=== PATIENT | female | born 1950 | race Caucasian/White ===

== ENCOUNTER 2018-05-25 11:30 | Observation (INO) | payer MEDICARE ==
[~2018-05-25] VITALS: Ht 157.5 cm; Wt 46.3 kg
[2018-05-25] MEDS ORDERED: SODIUM CHLORIDE 0.9% 1000ML 1,000 ML IV STA (11:40)
[2018-05-25 12:24] LABS: BASOPHILS % 0.3 % (0.0-1.0); EOSINOPHILS # (AUTO) 0.1 (0.0-0.4); EOSINOPHILS % 0.9 % (0.0-6.0); HEMATOCRIT 36.6 % (34.2-44.1); HEMOGLOBIN 12.7 g/dL (12.0-16.0); LYMPHOCYTES # (AUTO) 1.2 (1.0-3.2); LYMPHOCYTES % 12.7 % (18.0-39.1); MEAN CORPUSCULAR HEMOGLOBIN 32.8 pg (28-32); MEAN CORPUSCULAR HGB CONC 34.7 g/dL (31-35); MEAN CORPUSCULAR VOLUME 94.6 fL (81-99); MONOCYTES # (AUTO) 0.8 (0.2-0.8); MONOCYTES % 8.9 % (4.4-11.3); NEUTROPHILS # (AUTO) 6.9 (2.1-6.9); NEUTROPHILS % 76.3 % (38.7-80.0); PLATELET COUNT 343 x10e3/uL (140-360); RED BLOOD COUNT 3.87 x10e6/uL (3.6-5.1)
[2018-05-25 12:34] LABS: ALANINE AMINOTRANSFERASE 35 IU/L (0-55); ALBUMIN 3.9 g/dL (3.5-5.0); ALBUMIN/GLOBULIN RATIO 0.8 (0.8-2.0); ALKALINE PHOSPHATASE 228 IU/L (40-150); ANION GAP 19.8 mmol/L (8-16); BLOOD UREA NITROGEN 25 mg/dL (7-26); BUN/CREATININE RATIO 15 (6-25); CALCIUM 11.1 mg/dL (8.4-10.2); CARBON DIOXIDE 23 mmol/L (22-29); CHLORIDE 83 mmol/L (98-107); CREATINE KINASE 32 IU/L (29-168); CREATININE, SERUM 1.65 mg/dL (0.57-1.11); EST GLOMERULAR FILTRATION RATE 31 ML/MIN (60-); GLUCOSE 82 mg/dL (74-118); POTASSIUM 4.8 mmol/L (3.5-5.1); SODIUM 121 mmol/L (136-145)
--- NOTE | 2018-05-25 12:53 | Diagnostic Imaging Report ---
EXAMINATION: CHEST SINGLE (PORTABLE) INDICATION: Cough COMPARISON: None FINDINGS: TUBES and LINES: None. LUNGS: Lungs are well inflated and clear. There is no evidence of pneumonia or pulmonary edema. PLEURA: No pleural effusion or pneumothorax. HEART AND MEDIASTINUM: The cardiomediastinal silhouette is unremarkable. BONES AND SOFT TISSUES: No acute osseous lesion. Soft tissues are unremarkable. UPPER ABDOMEN: No free air under the diaphragm. IMPRESSION: No acute thoracic abnormality. Signed by: Dr. Papo Fernandes MD on 05/25/2018 12:50 PM
[2018-05-25 13:11] LABS: BILIRUBIN,URINE NEGATIVE (NEGATIVE); CLARITY,URINE CLEAR (CLEAR); COLOR,URINE YELLOW (YELLOW); KETONES,URINE NEGATIVE (NEGATIVE); LEUKOCYTE ESTERASE ,URINE NEGATIVE (NEGATIVE); NITRITE,URINE NEGATIVE (NEGATIVE); PROTEIN,URINE DIPSTICK NEGATIVE (NEGATIVE); URINE UROBILINOGEN 0.2 mg/dL (0.2 - 1)
[2018-05-25 13:38] LABS: BACTERIA,URINE FEW /HPF; EPITHELIAL CELLS,URINE MODERATE /LPF; WBC,URINE (MAN) 0-5 /HPF (0-5); YEAST,URINE FEW
[2018-05-25] MEDS: SODIUM CHLORIDE 0.9% 1000ML 1,000 ML IV SCH (13:58)
[2018-05-25 14:38] VITALS: BP_SYST 118; BP_SYST 125; BP_DIAS 69; BP_DIAS 76
[2018-05-25] MEDS ORDERED: METFORMIN HCL500 MG PO (15:09)
[2018-05-25] MEDS ORDERED: AMILORIDE HCL5 MG (15:09)
[2018-05-25] MEDS ORDERED: LORATADINE10 MG PO (15:09)
[2018-05-25] MEDS ORDERED: FLUOXETINE HCL20 MG PO (15:09)
[2018-05-25] MEDS ORDERED: PIOGLITAZONE HC45 MG PO (15:09)
[2018-05-25] MEDS ORDERED: QUETIAPINE FUM100 MG PO (15:09)
[2018-05-25] MEDS ORDERED: DESMOPRESSIN (15:09)
[2018-05-25] MEDS ORDERED: VITAMIN D32000 UNI1 (15:09)
[2018-05-25] MEDS ORDERED: CARVEDILOL3.125 MG PO (15:09)
[2018-05-25] MEDS ORDERED: LEVOTHYROXINE75 MCG PO (15:09)
[2018-05-25 15:23] VITALS: BP 125/69
[2018-05-25] MEDS ORDERED: FLUCONAZOLE 200 MG/100 ML 100 ML IV SCH (17:45)
[2018-05-25] MEDS ORDERED: FLUCONAZOLE 200 MG/100 ML 100 ML IV ONE (18:00)
[2018-05-25] MEDS: SODIUM CHLORIDE 1 GM TAB PO SCH (19:51)
[2018-05-25 20:00] VITALS: BP 125/69
--- NOTE | 2018-05-25 20:42 | Diagnostic Imaging Report ---
History:Syncope Comparison studies:None Technique: Axial images were obtained from the skull base to the vertex. Coronal and sagittal images reconstructed from the axial data. Intravenous contrast: None Dose modulation, iterative reconstruction, and/or weight based adjustment of the mA/kV was utilized to reduce the radiation dose to as low as reasonably achievable. Findings: Scalp/skull: No abnormalities. Extra-axial spaces: No masses. No fluid collections. Brain sulci: Mildly prominent. Ventricles: Mild compensatory dilatation. No hydrocephalus. Parenchyma: Scattered hazy confluent hypodensities in the supratentorial white matter are small vessel ischemic changes. Chronic lacunar infarct. Left coronary abdomen No masses, hemorrhage, acute or chronic cortical vascular insults. Sellar/suprasellar region: No abnormalities. Craniocervical junction: Patent foramen magnum. No Chiari one malformation. Incidental findings: Atherosclerotic calcifications in the carotid siphons . Impression: No acute abnormalities. Chronic findings: 1. Mild generalized volume loss. 2. Mild supratentorial white matter small vessel ischemic changes. Signed by: DR Marlon Keene M.D. on 05/25/2018 8:39 PM
[2018-05-26] VITALS: BP 104/62
[2018-05-26] MEDS: SODIUM CHLORIDE 0.9% 1000ML 1,000 ML IV SCH (00:10)
[2018-05-26 04:00] VITALS: BP 102/58
[2018-05-26 05:08] LABS: BASOPHILS % 0.5 % (0.0-1.0); EOSINOPHILS # (AUTO) 0.1 (0.0-0.4); HEMATOCRIT 32.2 % (34.2-44.1); HEMOGLOBIN 11.1 g/dL (12.0-16.0); LYMPHOCYTES # (AUTO) 1.1 (1.0-3.2); LYMPHOCYTES % 18.1 % (18.0-39.1); MEAN CORPUSCULAR HEMOGLOBIN 32.8 pg (28-32); MEAN CORPUSCULAR HGB CONC 34.5 g/dL (31-35); MEAN CORPUSCULAR VOLUME 95.3 fL (81-99); MONOCYTES # (AUTO) 0.5 (0.2-0.8); MONOCYTES % 8.6 % (4.4-11.3); NEUTROPHILS # (AUTO) 4.3 (2.1-6.9); NEUTROPHILS % 71.3 % (38.7-80.0); PLATELET COUNT 299 x10e3/uL (140-360); RED BLOOD COUNT 3.38 x10e6/uL (3.6-5.1)
[2018-05-26 05:21] VITALS: BP 102/58
[2018-05-26 05:28] LABS: ALBUMIN 3.2 g/dL (3.5-5.0); ANION GAP 14.6 mmol/L (8-16); BILIRUBIN,DIRECT 0.1 mg/dL (0.0-0.5); CALCIUM 9.6 mg/dL (8.4-10.2); CREATININE, SERUM 1.28 mg/dL (0.57-1.11); MAGNESIUM 1.6 MG/DL (1.3-2.1); POTASSIUM 3.6 mmol/L (3.5-5.1)
[2018-05-26 05:56] LABS: FREE T4 (FREE THYROXINE) 0.71 ng/dL (0.9-1.8); THYROID STIMULATING HORMONE 0.165 uIU/mL (0.350-4.940)
[2018-05-26] MEDS ORDERED: LEVOTHYROXINE SODIUM 75 MCG TAB PO SCH ×2 (06:00→09:00)
[2018-05-26 07:34] VITALS: BP 98/60
[2018-05-26] MEDS: SODIUM CHLORIDE 1 GM TAB PO SCH (08:02)
[2018-05-26] MEDS ORDERED: LORATADINE 10 MG TAB PO SCH (09:00)
[2018-05-26] MEDS ORDERED: PIOGLITAZONE HCL 45 MG TAB PO SCH (09:00)
[2018-05-26] MEDS ORDERED: CARVEDILOL 3.125 MG TAB PO SCH (09:00)
[2018-05-26] MEDS ORDERED: FLUCONAZOLE 100 MG TAB PO SCH (09:00)
[2018-05-26] MEDS ORDERED: QUETIAPINE FUMARATE 100 MG TAB PO SCH (09:00)
[2018-05-26] MEDS ORDERED: PIOGLITAZONE HCL 15 MG TAB PO SCH (09:00)
[2018-05-26] MEDS ORDERED: FLUOXETINE HCL 20 MG CAP PO SCH (09:00)
[2018-05-26] MEDS ORDERED: DEXTROSE 50% SYRINGE 50 ML IV PRN (10:00)
[2018-05-26] MEDS ORDERED: FLUCONAZOLE100 MG PO (10:01)
[2018-05-26] MEDS ORDERED: LEVOTHYROXINE50 MCG PO (10:01)
[2018-05-26] MEDS ORDERED: INSULIN LISPRO 100 UNIT/1 ML 3ML VIAL SQ SCH (11:30)
[2018-05-26 11:32] VITALS: BP 113/64
--- NOTE | 2018-05-26 18:30 | Discharge Summary ---
ADMISSION DIAGNOSES 1. Hyponatremia. 2. Type 2 diabetes. 3. Bipolar. 4. Hypothyroidism. 5. Chronic kidney disease versus acute kidney injury. 6. Candiduria. 7. Diabetes insipidus. 8. Hypertension. DISCHARGE DIAGNOSES 1. Hyponatremia. 2. Type 2 diabetes. 3. Bipolar. 4. Hypothyroidism. 5. Chronic kidney disease versus acute kidney injury. 6. Candiduria. 7. Diabetes insipidus. 8. Hypertension. 9. sinus tachycardia. HISTORY: Patient has a history of type 2 diabetes, hypertension, hypothyroidism, bipolar depression, diabetes insipidus, tumor of the pituitary gland, surgical history of abdominal surgery, cholecystectomy, hysterectomy, x1, pituitary tumor removal. FAMILY HISTORY: Of diabetes in mother, uncle, grandmother and brother. SOCIAL HISTORY: Of 1 [id number] smoker, no alcohol or illicit drugs. HOSPITAL COURSE: A 68-year-old female admitted from Dr. Bird "Jose" Hanna's office due to hypotension. According to the patient, the blood pressure was so low that they could not get a value. On admission to the ER, blood pressure was 116/84. Patient admits to syncope last and positional vertigo. Patient denies recent change in diet or meds. She says that she has been lethargic and weak since early last week. On admission patient had a CT carotid Doppler which was negative. Sodium on admission was with boluses given in the ER as well as 2-g-sodium tabs. Patient's DDAVP and diuretics were held. Creatinine on admission was 1.65, GFR of 31. The next day, creatinine was 1.28, GFR of 42. Sodium came up to 134. Patient found to have yeast in her urine and was started on fluconazole. TSH was 0.165, free T4 of 0.71. Patient was discharged home and advised to follow up with her primary care as soon as possible due to the possibility of hypernatremia without DDAVP and diuretics. Patient was given a copy of her labs and said she will follow up as discussed. She will resume home medicines minus the amiloride, DDAVP, and she will start fluconazole for 5 days. Patient and understand discharge instructions and agree to plan. Vital signs stable, patient afebrile. Dictated by: Frances Brown, [employer] FREEDOM TAVAREZ MD Job#: [id number]
[2018-05-27] MEDS ORDERED: LEVOTHYROXINE SODIUM 50 MCG TAB PO SCH (06:00)
[2018-05-27] MEDS ORDERED: LEVOTHYROXINE SODIUM 75 MCG TAB PO SCH (06:00)
== END 2018-05-26 14:19 | disposition home or self-care (01) ==
LOC: ER 11:30 → ERHOLD 13:19 → IMCU 14:17
PROVIDERS: ADMIT Internal Medicine; ATTEND Internal Medicine
DX: I95.1 Orthostatic hypotension (principal); E87.1 Hypo-osmolality and hyponatremia; E11.22 Type 2 diabetes mellitus with diabetic chronic kidney disease; N18.9 Chronic kidney disease, unspecified; F31.9 Bipolar disorder, unspecified; E03.9 Hypothyroidism, unspecified; B37.49 Other urogenital candidiasis; Z83.3 Family history of diabetes mellitus; N17.9 Acute kidney failure, unspecified; I10 Essential (primary) hypertension; R00.0 Tachycardia, unspecified; F17.210 Nicotine dependence, cigarettes, uncomplicated
CPT/HCPCS: 36415 ×2; 70450; 71045; 80048; 80053; 80076; 81001; 82306; 82550; 82553; 82947; 82948 ×2; 83735; 83970; 84295; 84300; 84439; 84443; 84484; 84520; 85025 ×2; 87086; 93005; 93880; 97116; 97161; 99284; G0378 ×2; G8978; G8979; J1450; J7030 ×2

== ENCOUNTER 2020-05-23 10:45 | Inpatient (IN) | payer MEDICARE ==
[2020-05-23] VITALS (9 sets, daily range): BP systolic 106–126; BP diastolic 65–80
[~2020-05-23] VITALS: Ht 157.5 cm; Wt 49.0 kg
[~2020-05-23 10:45] MED LIST: AMILORIDE HCL5 MG; CARVEDILOL3.125 MG PO; DESMOPRESSIN; FLUCONAZOLE100 MG PO; FLUOXETINE HCL20 MG PO; LEVOTHYROXINE50 MCG PO; LEVOTHYROXINE75 MCG PO; LORATADINE10 MG PO; METFORMIN HCL500 MG PO; PIOGLITAZONE HC45 MG PO; QUETIAPINE FUM100 MG PO; VITAMIN D32000 UNI1
[2020-05-23] MEDS ORDERED: PANTOPRAZOLE 40 MG 10ML VIAL IV STA (11:08)
[2020-05-23] MEDS ORDERED: SODIUM CHLORIDE 0.9% 1000ML 1,000 ML IV STA (11:08)
[2020-05-23] MEDS ORDERED: ONDANSETRON HCL INJ 2MG/ML 2ML 2 MG/ML VIAL IV STA (11:08)
[2020-05-23 11:16] LABS: BASOPHILS % 0.2 % (0.0-1.0); HEMATOCRIT 37.9 % (34.2-44.1); HEMOGLOBIN 11.9 g/dL (12.0-16.0); LYMPHOCYTES # (AUTO) 0.2 (1.0-3.2); LYMPHOCYTES % 1.2 % (18.0-39.1); MEAN CORPUSCULAR HEMOGLOBIN 27.4 pg (28-32); MEAN CORPUSCULAR HGB CONC 31.4 g/dL (31-35); MEAN CORPUSCULAR VOLUME 87.1 fL (81-99); MONOCYTES # (AUTO) 0.3 (0.2-0.8); MONOCYTES % 1.4 % (4.4-11.3); NEUTROPHILS # (AUTO) 19.5 (2.1-6.9); NEUTROPHILS % 96.1 % (38.7-80.0); PLATELET COUNT 357 x10e3/uL (140-360); RED BLOOD COUNT 4.35 x10e6/uL (3.6-5.1); RED CELL DISTRIBUTION WIDTH 17.5 % (11.7-14.4)
[2020-05-23] MEDS ORDERED: SODIUM CHLORIDE 0.9% 50ML 50 ML ONE (11:24)
[2020-05-23] MEDS ORDERED: DIATRIZOATE MEGL/DIATRIZOA SOD 30 ML BTL PO ONE (11:25)
[2020-05-23] MEDS ORDERED: IOPAMIDOL 370 MG/ML 200 ML INFUS..BTL INJ ONE (11:25)
[2020-05-23 11:29] LABS: INR 1.02; PROTHROMBIN TIME 13.9 seconds (11.9-14.5)
[2020-05-23 11:30] LABS: PARTIAL THROMBOPLASTIN TIME 30.4 seconds (23.8-35.5)
[2020-05-23] MEDS ORDERED: CARVEDILOL6.25 MG PO (11:32)
[2020-05-23] MEDS ORDERED: QUETIAPINE FUM400 MG PO (11:32)
[2020-05-23] MEDS ORDERED: LIOTHYRONINE SO5 MCG PO (11:32)
[2020-05-23] MEDS ORDERED: ULTRAM 50MG50 MG PO (11:32)
[2020-05-23] MEDS ORDERED: AMITRIPTYLINE H10 MG PO (11:32)
[2020-05-23] MEDS ORDERED: PANTOPRAZOLE SO40 MG PO (11:32)
[2020-05-23] MEDS ORDERED: AMILORIDE HCL5 MG (11:32)
[2020-05-23] MEDS ORDERED: FLUOXETINE HCL40 MG (11:32)
[2020-05-23] MEDS ORDERED: DESMOPRESSIN A0.2 MG PO (11:32)
[2020-05-23] MEDS ORDERED: LEVOTHYROXINE88 MCG PO (11:32)
[2020-05-23 11:36] LABS: ALBUMIN/GLOBULIN RATIO 1.2 (0.8-2.0); ANION GAP 16.7 mmol/L (8-16); CALCIUM 9.8 mg/dL (8.4-10.2); CREATININE, SERUM 1.48 mg/dL (0.57-1.11); MAGNESIUM 1.4 MG/DL (1.3-2.1); POTASSIUM 4.7 mmol/L (3.5-5.1)
[2020-05-23 11:39] LABS: BILIRUBIN,URINE NEGATIVE (NEGATIVE); CLARITY,URINE CLEAR (CLEAR); COLOR,URINE YELLOW (YELLOW); KETONES,URINE NEGATIVE (NEGATIVE); LEUKOCYTE ESTERASE ,URINE NEGATIVE (NEGATIVE); NITRITE,URINE NEGATIVE (NEGATIVE); PROTEIN,URINE DIPSTICK NEGATIVE (NEGATIVE)
[2020-05-23] MEDS ORDERED: PIPER-TAZ 3.375 GM 50 ML IV ONE (11:45)
[2020-05-23] MEDS ORDERED: SODIUM CHLORIDE 0.9% 500ML 500 ML IV ONE (11:45)
[2020-05-23 11:57] LABS: BACTERIA,URINE FEW /HPF; EPITHELIAL CELLS,URINE FEW /LPF; RBC,URINE 0-5 /HPF (0-5); WBC,URINE (MAN) 0-5 /HPF (0-5)
[2020-05-23 11:59] LABS: CREATINE KINASE MB 0.9 ng/mL (0-5.0)
[2020-05-23 12:05] LABS: ANISOCYTOSIS SLIGHT; BAND NEUTROPHILS % (MANUAL) 7 %; LYMPHOCYTES % (MANUAL) 3 % (19-48); MONOCYTES % (MANUAL) 1 % (3.4-9.0); NEUTROPHILS % (MANUAL) 88 % (40-74); PLATELET ESTIMATE ADEQUATE; POIKILOCYTOSIS SLIGHT; RBC MORPHOLOGY COMMENT NORMAL
[2020-05-23 12:06] LABS: PLATELET MORPHOLOGY COMMENT FEW GIANT
[2020-05-23] MEDS ORDERED: SODIUM CHLORIDE 0.9% 1000ML 1,000 ML IV SCH (14:30)
[2020-05-23] MEDS ORDERED: LIDOCAINE HCL 1% LOCAL INJ 20 ML VIAL ONE (14:35)
[2020-05-23] MEDS ORDERED: SODIUM CHLORIDE 0.9% 250ML 250 ML ONE (14:36)
[2020-05-23] MEDS ORDERED: IOPAMIDOL 300MG/ML 100 ML INFUS..BTL IV ONE (14:36)
[2020-05-23] MEDS ORDERED: MIDAZOLAM HCL 2 MG/2 ML VIAL ONE (14:47)
[2020-05-23] MEDS ORDERED: FENTANYL CITRATE/PF 100MCG/2 ML INJ ONE (14:47)
[2020-05-23] MEDS: MORPHINE SULFATE 2 MG/ML SYR 1ML IV PRN (16:50)
[2020-05-23] MEDS: ONDANSETRON HCL INJ 2MG/ML 2ML 2 MG/ML VIAL IV PRN (16:50)
[2020-05-23] MEDS: PIPERACILLIN/TAZO 2.25 GM 50 ML IV SCH (17:41)
[2020-05-23] MEDS ORDERED: PIPERACILLIN/TAZOBAC 2.25 GM/SOD CHL 50 ML BAG IV SCH (18:00)
[2020-05-23] MEDS ORDERED: INFLUENZA VIRUS VAC SPLIT INJ 0.5 ML SYR IM SCH (18:44)
[2020-05-23] MEDS ORDERED: METOPROLOL TARTRATE INJ 1 MG/ML VIAL IV PRN (21:00)
[2020-05-23] MEDS ORDERED: [UNRECOGNIZED DRUG - OTHER] OP/OT (23:25)
[2020-05-24] VITALS (17 sets, daily range): BP systolic 107–156; BP diastolic 63–94
[2020-05-24] MEDS: PIPERACILLIN/TAZO 2.25 GM 50 ML IV SCH ×4 (00:35→18:30)
[2020-05-24] MEDS: AMITRIPTYLINE HCL 10 MG TAB PO SCH ×2 (00:52→21:40)
[2020-05-24] MEDS: FLUOXETINE HCL 20 MG CAP PO SCH ×2 (00:52→21:40)
[2020-05-24] MEDS: QUETIAPINE FUMARATE 100 MG TAB PO SCH ×2 (00:52→21:40)
[2020-05-24] MEDS: MORPHINE SULFATE 2 MG/ML SYR 1ML IV PRN (05:00)
[2020-05-24 05:10] LABS: BASOPHILS % 0.2 % (0.0-1.0); EOSINOPHILS % 0.1 % (0.0-6.0); HEMATOCRIT 37.4 % (34.2-44.1); HEMOGLOBIN 11.5 g/dL (12.0-16.0); LYMPHOCYTES # (AUTO) 0.7 (1.0-3.2); LYMPHOCYTES % 5.4 % (18.0-39.1); MEAN CORPUSCULAR HEMOGLOBIN 27.6 pg (28-32); MEAN CORPUSCULAR HGB CONC 30.7 g/dL (31-35); MEAN CORPUSCULAR VOLUME 89.9 fL (81-99); MONOCYTES # (AUTO) 0.6 (0.2-0.8); MONOCYTES % 4.8 % (4.4-11.3); NEUTROPHILS # (AUTO) 10.9 (2.1-6.9); NEUTROPHILS % 88.4 % (38.7-80.0); PLATELET COUNT 244 x10e3/uL (140-360); RED BLOOD COUNT 4.16 x10e6/uL (3.6-5.1); RED CELL DISTRIBUTION WIDTH 18.1 % (11.7-14.4)
[2020-05-24 05:30] LABS: ALBUMIN 3.4 g/dL (3.5-5.0); ALBUMIN/GLOBULIN RATIO 1.1 (0.8-2.0); ANION GAP 13.7 mmol/L (8-16); CALCIUM 9.2 mg/dL (8.4-10.2); CREATININE, SERUM 1.27 mg/dL (0.57-1.11); POTASSIUM 5.7 mmol/L (3.5-5.1)
[2020-05-24 05:51] LABS: CREATINE KINASE MB 1.1 ng/mL (0-5.0)
[2020-05-24 06:05] LABS: CHOL/HDL RATIO 4.4 (3.0-3.6); MAGNESIUM 1.5 MG/DL (1.3-2.1); PHOSPHORUS 3.5 MG/DL (2.3-4.7)
[2020-05-24] MEDS: FAMOTIDINE 20 MG/2 ML VIAL IV SCH ×2 (08:54→17:00)
[2020-05-24 09:12] LABS: ALBUMIN 3.2 g/dL (3.5-5.0); ALBUMIN/GLOBULIN RATIO 1.1 (0.8-2.0); ANION GAP 13.6 mmol/L (8-16); CALCIUM 8.7 mg/dL (8.4-10.2); CREATININE, SERUM 1.19 mg/dL (0.57-1.11); POTASSIUM 4.6 mmol/L (3.5-5.1)
[2020-05-24] MEDS ORDERED: SODIUM CHLORIDE 0.9% 250ML 250 ML ONE (18:35)
[2020-05-24] MEDS ORDERED: LIOTHYRONINE SODIUM 5 MCG TAB PO SCH (21:00)
[2020-05-24] MEDS ORDERED: DESMOPRESSIN ACETATE 0.2 MG TABLET PO SCH ×2 (21:00)
[2020-05-24] MEDS: LIOTHYRONINE SODIUM 5 MCG TAB PO SCH (21:40)
[2020-05-25] VITALS (9 sets, daily range): BP systolic 123–151; BP diastolic 83–99
[2020-05-25] MEDS: MORPHINE SULFATE 2 MG/ML SYR 1ML IV PRN (05:25)
[2020-05-25 05:37] LABS: BASOPHILS % 0.3 % (0.0-1.0); EOSINOPHILS # (AUTO) 0.1 (0.0-0.4); EOSINOPHILS % 0.7 % (0.0-6.0); HEMATOCRIT 34.7 % (34.2-44.1); MEAN CORPUSCULAR HEMOGLOBIN 28.7 pg (28-32); MEAN CORPUSCULAR HGB CONC 31.7 g/dL (31-35); MEAN CORPUSCULAR VOLUME 90.6 fL (81-99); MONOCYTES # (AUTO) 0.7 (0.2-0.8); MONOCYTES % 7.6 % (4.4-11.3); NEUTROPHILS # (AUTO) 7.8 (2.1-6.9); NEUTROPHILS % 80.6 % (38.7-80.0); PLATELET COUNT 230 x10e3/uL (140-360); RED BLOOD COUNT 3.83 x10e6/uL (3.6-5.1); RED CELL DISTRIBUTION WIDTH 18.2 % (11.7-14.4)
[2020-05-25] MEDS: PIPERACILLIN/TAZO 2.25 GM 50 ML IV SCH ×5 (05:39→23:45)
[2020-05-25 06:08] LABS: ALBUMIN 2.6 g/dL (3.5-5.0); ALBUMIN/GLOBULIN RATIO 0.6 (0.8-2.0); ANION GAP 13.6 mmol/L (8-16); CALCIUM 9.1 mg/dL (8.4-10.2); CREATININE, SERUM 1.25 mg/dL (0.57-1.11); POTASSIUM 4.6 mmol/L (3.5-5.1)
[2020-05-25] MEDS: FAMOTIDINE 20 MG/2 ML VIAL IV SCH ×2 (13:03→17:15)
[2020-05-25] MEDS: QUETIAPINE FUMARATE 100 MG TAB PO SCH (21:24)
[2020-05-25] MEDS: DESMOPRESSIN ACETATE 0.2 MG TABLET PO SCH (21:24)
[2020-05-25] MEDS: AMITRIPTYLINE HCL 10 MG TAB PO SCH (21:24)
[2020-05-25] MEDS: LIOTHYRONINE SODIUM 5 MCG TAB PO SCH (21:24)
[2020-05-25] MEDS: FLUOXETINE HCL 20 MG CAP PO SCH (21:24)
[2020-05-26] VITALS (8 sets, daily range): BP systolic 124–158; BP diastolic 78–94
[2020-05-26] MEDS: PIPERACILLIN/TAZO 2.25 GM 50 ML IV SCH ×3 (05:21→17:30)
[2020-05-26 06:39] LABS: BASOPHILS % 0.3 % (0.0-1.0); EOSINOPHILS # (AUTO) 0.1 (0.0-0.4); EOSINOPHILS % 1.1 % (0.0-6.0); HEMATOCRIT 34.7 % (34.2-44.1); HEMOGLOBIN 11.2 g/dL (12.0-16.0); LYMPHOCYTES # (AUTO) 0.9 (1.0-3.2); MEAN CORPUSCULAR HEMOGLOBIN 28.9 pg (28-32); MEAN CORPUSCULAR HGB CONC 32.3 g/dL (31-35); MEAN CORPUSCULAR VOLUME 89.7 fL (81-99); MONOCYTES # (AUTO) 0.6 (0.2-0.8); MONOCYTES % 6.5 % (4.4-11.3); NEUTROPHILS # (AUTO) 7.6 (2.1-6.9); NEUTROPHILS % 81.1 % (38.7-80.0); PLATELET COUNT 240 x10e3/uL (140-360); RED BLOOD COUNT 3.87 x10e6/uL (3.6-5.1); RED CELL DISTRIBUTION WIDTH 17.9 % (11.7-14.4)
[2020-05-26 06:48] LABS: ANION GAP 14.1 mmol/L (8-16); CALCIUM 9.2 mg/dL (8.4-10.2); CREATININE, SERUM 1.29 mg/dL (0.57-1.11); POTASSIUM 4.1 mmol/L (3.5-5.1)
[2020-05-26] MEDS: PANTOPRAZOLE SOD 40 MG TABEC PO SCH (08:21)
[2020-05-26] MEDS: FAMOTIDINE 20 MG/2 ML VIAL IV SCH ×2 (08:21→16:30)
[2020-05-26] MEDS: ONDANSETRON HCL INJ 2MG/ML 2ML 2 MG/ML VIAL IV PRN (11:36)
[2020-05-26] MEDS: MORPHINE SULFATE 2 MG/ML SYR 1ML IV PRN (11:37)
[2020-05-26] MEDS: AMLODIPINE BESYLATE 10 MG TAB PO SCH (16:00)
[2020-05-26] MEDS: DESMOPRESSIN ACETATE 0.2 MG TABLET PO SCH (20:52)
[2020-05-26] MEDS: LIOTHYRONINE SODIUM 5 MCG TAB PO SCH (20:52)
[2020-05-26] MEDS: AMITRIPTYLINE HCL 10 MG TAB PO SCH (20:52)
[2020-05-26] MEDS: FLUOXETINE HCL 20 MG CAP PO SCH (20:52)
[2020-05-26] MEDS: QUETIAPINE FUMARATE 100 MG TAB PO SCH (20:52)
[2020-05-26] MEDS ORDERED: SODIUM CHLORIDE 0.9% 250ML 250 ML ONE (22:51)
[2020-05-27] VITALS (8 sets, daily range): BP systolic 127–168; BP diastolic 76–98
[2020-05-27] MEDS: PIPERACILLIN/TAZO 2.25 GM 50 ML IV SCH ×5 (05:52→23:51)
[2020-05-27 06:03] LABS: BASOPHILS % 0.3 % (0.0-1.0); EOSINOPHILS # (AUTO) 0.1 (0.0-0.4); EOSINOPHILS % 0.9 % (0.0-6.0); HEMATOCRIT 33.8 % (34.2-44.1); HEMOGLOBIN 10.6 g/dL (12.0-16.0); LYMPHOCYTES # (AUTO) 1.1 (1.0-3.2); MEAN CORPUSCULAR HEMOGLOBIN 27.1 pg (28-32); MEAN CORPUSCULAR HGB CONC 31.4 g/dL (31-35); MEAN CORPUSCULAR VOLUME 86.4 fL (81-99); MONOCYTES # (AUTO) 0.7 (0.2-0.8); MONOCYTES % 8.3 % (4.4-11.3); NEUTROPHILS % 75.2 % (38.7-80.0); PLATELET COUNT 272 x10e3/uL (140-360); RED BLOOD COUNT 3.91 x10e6/uL (3.6-5.1); RED CELL DISTRIBUTION WIDTH 17.2 % (11.7-14.4)
[2020-05-27 06:29] LABS: ALBUMIN 2.8 g/dL (3.5-5.0); ALBUMIN/GLOBULIN RATIO 0.7 (0.8-2.0); ANION GAP 12.1 mmol/L (8-16); CALCIUM 9.2 mg/dL (8.4-10.2); CREATININE, SERUM 1.3 mg/dL (0.57-1.11); POTASSIUM 4.1 mmol/L (3.5-5.1)
[2020-05-27] MEDS: PANTOPRAZOLE SOD 40 MG TABEC PO SCH (09:35)
[2020-05-27] MEDS: FAMOTIDINE 20 MG/2 ML VIAL IV SCH ×2 (09:35→18:19)
[2020-05-27] MEDS: AMLODIPINE BESYLATE 10 MG TAB PO SCH (09:36)
[2020-05-27] MEDS ORDERED: ACETAMINOPHEN 325 MG TAB PO PRN (20:45)
[2020-05-27] MEDS ORDERED: HYDRALAZINE HCL 20 MG/ML VIAL IV PRN (20:45)
[2020-05-27] MEDS: LIOTHYRONINE SODIUM 5 MCG TAB PO SCH (21:05)
[2020-05-27] MEDS: QUETIAPINE FUMARATE 100 MG TAB PO SCH (21:05)
[2020-05-27] MEDS: DESMOPRESSIN ACETATE 0.2 MG TABLET PO SCH (21:05)
[2020-05-27] MEDS: AMITRIPTYLINE HCL 10 MG TAB PO SCH (21:05)
[2020-05-27] MEDS: FLUOXETINE HCL 20 MG CAP PO SCH (21:05)
[2020-05-27] MEDS: MORPHINE SULFATE 2 MG/ML SYR 1ML IV PRN (22:09)
[2020-05-27] MEDS: ONDANSETRON HCL INJ 2MG/ML 2ML 2 MG/ML VIAL IV PRN (22:09)
[2020-05-28] VITALS (8 sets, daily range): BP systolic 106–124; BP diastolic 75–83
[2020-05-28] MEDS ORDERED: BISACODYL 10 MG SUPP PR ONE (06:00)
[2020-05-28] MEDS: PIPERACILLIN/TAZO 2.25 GM 50 ML IV SCH ×3 (06:07→16:57)
[2020-05-28 06:54] LABS: FERRITIN 79.14 ng/mL (4.63-204.00)
[2020-05-28] MEDS: PANTOPRAZOLE SOD 40 MG TABEC PO SCH (08:26)
[2020-05-28] MEDS: FAMOTIDINE 20 MG/2 ML VIAL IV SCH ×2 (08:26→16:57)
[2020-05-28] MEDS: AMLODIPINE BESYLATE 10 MG TAB PO SCH (08:26)
[2020-05-28] MEDS ORDERED: SODIUM CHLORIDE 0.9% 250ML 250 ML ONE (14:10)
[2020-05-28] MEDS ORDERED: LIDOCAINE HCL 1% LOCAL INJ 20 ML VIAL ONE (14:10)
[2020-05-28] MEDS ORDERED: IOPAMIDOL 300MG/ML 100 ML INFUS..BTL IV ONE (14:10)
[2020-05-28] MEDS ORDERED: FENTANYL CITRATE/PF 100MCG/2 ML INJ ONE (15:03)
[2020-05-28] MEDS ORDERED: MIDAZOLAM HCL 2 MG/2 ML VIAL ONE (15:03)
[2020-05-28] MEDS: FLUOXETINE HCL 20 MG CAP PO SCH (21:00)
[2020-05-28] MEDS: AMITRIPTYLINE HCL 10 MG TAB PO SCH (21:00)
[2020-05-28] MEDS: DESMOPRESSIN ACETATE 0.2 MG TABLET PO SCH (21:00)
[2020-05-28] MEDS: LIOTHYRONINE SODIUM 5 MCG TAB PO SCH (21:00)
[2020-05-28] MEDS: QUETIAPINE FUMARATE 100 MG TAB PO SCH (21:00)
[2020-05-28] MEDS: MORPHINE SULFATE 2 MG/ML SYR 1ML IV PRN (22:36)
[2020-05-28] MEDS: ONDANSETRON HCL INJ 2MG/ML 2ML 2 MG/ML VIAL IV PRN (22:36)
[2020-05-29] VITALS (8 sets, daily range): BP systolic 102–141; BP diastolic 70–90
[2020-05-29 05:09] LABS: BASOPHILS # (AUTO) 0.1 (0.0-0.1); BASOPHILS % 0.5 % (0.0-1.0); EOSINOPHILS # (AUTO) 0.1 (0.0-0.4); HEMATOCRIT 32.9 % (34.2-44.1); HEMOGLOBIN 10.9 g/dL (12.0-16.0); LYMPHOCYTES # (AUTO) 1.8 (1.0-3.2); LYMPHOCYTES % 19.1 % (18.0-39.1); MEAN CORPUSCULAR HEMOGLOBIN 29.5 pg (28-32); MEAN CORPUSCULAR HGB CONC 33.1 g/dL (31-35); MEAN CORPUSCULAR VOLUME 88.9 fL (81-99); MONOCYTES # (AUTO) 0.9 (0.2-0.8); MONOCYTES % 9.7 % (4.4-11.3); NEUTROPHILS # (AUTO) 6.2 (2.1-6.9); NEUTROPHILS % 67.8 % (38.7-80.0); PLATELET COUNT 258 x10e3/uL (140-360); RED CELL DISTRIBUTION WIDTH 19.1 % (11.7-14.4)
[2020-05-29] MEDS: PIPERACILLIN/TAZO 2.25 GM 50 ML IV SCH ×5 (05:27→23:08)
[2020-05-29 05:29] LABS: ALBUMIN 2.7 g/dL (3.5-5.0); ALBUMIN/GLOBULIN RATIO 0.6 (0.8-2.0); ANION GAP 13.8 mmol/L (8-16); BILIRUBIN,DIRECT 0.4 mg/dL (0.0-0.5); CALCIUM 9.3 mg/dL (8.4-10.2); CREATININE, SERUM 1.21 mg/dL (0.57-1.11); POTASSIUM 3.8 mmol/L (3.5-5.1)
[2020-05-29] MEDS: FAMOTIDINE 20 MG/2 ML VIAL IV SCH ×2 (09:04→18:26)
[2020-05-29] MEDS: CYANOCOBALAMIN INJ 1,000 MCG/ML VIAL IM SCH (09:04)
[2020-05-29] MEDS: IRON SUCROSE 100 MG in SODIUM CHLORIDE 0.9% 100 ML 100 ML IV SCH (09:04)
[2020-05-29] MEDS: PANTOPRAZOLE SOD 40 MG TABEC PO SCH (09:04)
[2020-05-29] MEDS: AMLODIPINE BESYLATE 10 MG TAB PO SCH (09:07)
[2020-05-29] MEDS: ONDANSETRON HCL INJ 2MG/ML 2ML 2 MG/ML VIAL IV PRN ×2 (11:46→22:54)
[2020-05-29] MEDS: MORPHINE SULFATE 2 MG/ML SYR 1ML IV PRN ×2 (11:46→22:54)
[2020-05-29] MEDS: LIOTHYRONINE SODIUM 5 MCG TAB PO SCH (20:02)
[2020-05-29] MEDS: DESMOPRESSIN ACETATE 0.2 MG TABLET PO SCH (20:02)
[2020-05-29] MEDS: AMITRIPTYLINE HCL 10 MG TAB PO SCH (20:02)
[2020-05-29] MEDS: FLUOXETINE HCL 20 MG CAP PO SCH (20:02)
[2020-05-29] MEDS: QUETIAPINE FUMARATE 100 MG TAB PO SCH (20:03)
[2020-05-30] VITALS (7 sets, daily range): BP systolic 110–130; BP diastolic 73–85
[2020-05-30] MEDS ORDERED: MAGNESIUM HYDROXIDE 30 ML UDC PO PRN
[2020-05-30] MEDS: PIPERACILLIN/TAZO 2.25 GM 50 ML IV SCH ×3 (05:02→16:56)
[2020-05-30 05:07] LABS: BASOPHILS # (AUTO) 0.1 (0.0-0.1); BASOPHILS % 0.6 % (0.0-1.0); EOSINOPHILS # (AUTO) 0.1 (0.0-0.4); EOSINOPHILS % 1.2 % (0.0-6.0); HEMATOCRIT 35.3 % (34.2-44.1); HEMOGLOBIN 11.1 g/dL (12.0-16.0); LYMPHOCYTES # (AUTO) 2.2 (1.0-3.2); LYMPHOCYTES % 22.7 % (18.0-39.1); MEAN CORPUSCULAR HEMOGLOBIN 28.1 pg (28-32); MEAN CORPUSCULAR HGB CONC 31.4 g/dL (31-35); MEAN CORPUSCULAR VOLUME 89.4 fL (81-99); MONOCYTES # (AUTO) 0.8 (0.2-0.8); NEUTROPHILS # (AUTO) 6.2 (2.1-6.9); PLATELET COUNT 339 x10e3/uL (140-360); RED BLOOD COUNT 3.95 x10e6/uL (3.6-5.1); RED CELL DISTRIBUTION WIDTH 17.6 % (11.7-14.4)
[2020-05-30 05:32] LABS: ALBUMIN 2.8 g/dL (3.5-5.0); ALBUMIN/GLOBULIN RATIO 0.6 (0.8-2.0); ANION GAP 17.2 mmol/L (8-16); BILIRUBIN,DIRECT 0.3 mg/dL (0.0-0.5); CALCIUM 9.4 mg/dL (8.4-10.2); CREATININE, SERUM 1.29 mg/dL (0.57-1.11); POTASSIUM 4.2 mmol/L (3.5-5.1)
[2020-05-30] MEDS: AMLODIPINE BESYLATE 10 MG TAB PO SCH (08:35)
[2020-05-30] MEDS: PANTOPRAZOLE SOD 40 MG TABEC PO SCH (08:35)
[2020-05-30] MEDS: FAMOTIDINE 20 MG/2 ML VIAL IV SCH ×2 (08:35→16:56)
[2020-05-30] MEDS: CYANOCOBALAMIN INJ 1,000 MCG/ML VIAL IM SCH (08:35)
[2020-05-30] MEDS: IRON SUCROSE 100 MG in SODIUM CHLORIDE 0.9% 100 ML 100 ML IV SCH (08:36)
[2020-05-30] MEDS: LIOTHYRONINE SODIUM 5 MCG TAB PO SCH (20:45)
[2020-05-30] MEDS: AMITRIPTYLINE HCL 10 MG TAB PO SCH (20:47)
[2020-05-30] MEDS: FLUOXETINE HCL 20 MG CAP PO SCH (20:47)
[2020-05-30] MEDS: QUETIAPINE FUMARATE 100 MG TAB PO SCH (20:48)
[2020-05-30] MEDS: DESMOPRESSIN ACETATE 0.2 MG TABLET PO SCH (20:53)
[2020-05-30] MEDS ORDERED: TRAMADOL HCL 50 MG TAB PO PRN (23:30)
[2020-05-31] VITALS: BP 108/71
[2020-05-31] MEDS: PIPERACILLIN/TAZO 2.25 GM 50 ML IV SCH ×3 (00:05→11:49)
[2020-05-31] MEDS ORDERED: SODIUM CHLORIDE 0.9% 250ML 250 ML ONE (00:11)
[2020-05-31 04:00] VITALS: BP 115/80
[2020-05-31 05:05] LABS: BASOPHILS % 0.5 % (0.0-1.0); EOSINOPHILS # (AUTO) 0.1 (0.0-0.4); HEMATOCRIT 30.8 % (34.2-44.1); HEMOGLOBIN 9.7 g/dL (12.0-16.0); LYMPHOCYTES # (AUTO) 1.7 (1.0-3.2); LYMPHOCYTES % 20.5 % (18.0-39.1); MEAN CORPUSCULAR HEMOGLOBIN 27.2 pg (28-32); MEAN CORPUSCULAR HGB CONC 31.5 g/dL (31-35); MEAN CORPUSCULAR VOLUME 86.3 fL (81-99); MONOCYTES # (AUTO) 0.6 (0.2-0.8); MONOCYTES % 6.9 % (4.4-11.3); NEUTROPHILS # (AUTO) 5.8 (2.1-6.9); NEUTROPHILS % 69.8 % (38.7-80.0); PLATELET COUNT 334 x10e3/uL (140-360); RED BLOOD COUNT 3.57 x10e6/uL (3.6-5.1); RED CELL DISTRIBUTION WIDTH 17.2 % (11.7-14.4)
[2020-05-31 05:34] LABS: ALBUMIN 2.6 g/dL (3.5-5.0); ALBUMIN/GLOBULIN RATIO 0.7 (0.8-2.0); ANION GAP 14.5 mmol/L (8-16); CREATININE, SERUM 1.05 mg/dL (0.57-1.11); POTASSIUM 3.5 mmol/L (3.5-5.1)
[2020-05-31 07:40] VITALS: BP 117/80
[2020-05-31 08:13] VITALS: BP 117/80
[2020-05-31] MEDS: PANTOPRAZOLE SOD 40 MG TABEC PO SCH (08:47)
[2020-05-31] MEDS: FAMOTIDINE 20 MG/2 ML VIAL IV SCH (09:10)
[2020-05-31] MEDS: IRON SUCROSE 100 MG in SODIUM CHLORIDE 0.9% 100 ML 100 ML IV SCH (09:10)
[2020-05-31] MEDS: CYANOCOBALAMIN INJ 1,000 MCG/ML VIAL IM SCH (09:10)
[2020-05-31] MEDS: AMLODIPINE BESYLATE 10 MG TAB PO SCH (09:11)
[2020-05-31] MEDS ORDERED: KEFLEX500 MG PO (09:15)
[2020-05-31] MEDS ORDERED: ULTRAM 50MG50 MG PO (09:15)
[2020-05-31] MEDS ORDERED: FAMOTIDINE 20 MG TAB PO SCH ×2 (09:30→21:00)
[2020-05-31] MEDS ORDERED: ONDANSETRON HCL 4 MG ORAL DISINTEGRATING TAB PO PRN (09:45)
[2020-05-31 11:24] VITALS: BP 115/80
== END 2020-05-31 14:30 | disposition home or self-care (01) | DRG 871 ==
LOC: ER 11:10 → ERHOLD 14:24 → ICU 16:48 → MED/SURG 05-24 16:39
PROVIDERS: ADMIT Internal Medicine; ATTEND Internal Medicine
PROC: 0F9530Z Drainage of Right Hepatic Duct with Drainage Device, Percutaneous Approach (ICD-10-PCS; principal; 2020-05-23)
DX: A41.9 Sepsis, unspecified organism (principal); R65.21 Severe sepsis with septic shock; K83.1 Obstruction of bile duct; E43 Unspecified severe protein-calorie malnutrition; K83.09 Other cholangitis; E23.2 Diabetes insipidus; N17.9 Acute kidney failure, unspecified; Z68.1 Body mass index [BMI] 19.9 or less, adult; I10 Essential (primary) hypertension; E11.9 Type 2 diabetes mellitus without complications; F32.9 Major depressive disorder, single episode, unspecified; F31.9 Bipolar disorder, unspecified; K21.9 Gastro-esophageal reflux disease without esophagitis; Z90.49 Acquired absence of other specified parts of digestive tract; E03.9 Hypothyroidism, unspecified; E86.0 Dehydration; Z83.3 Family history of diabetes mellitus; B96.1 Klebsiella pneumoniae [K. pneumoniae] as the cause of diseases classified elsewhere; B96.20 Unspecified Escherichia coli [E. coli] as the cause of diseases classified elsewhere; B96.5 Pseudomonas (aeruginosa) (mallei) (pseudomallei) as the cause of diseases classified elsewhere; B95.2 Enterococcus as the cause of diseases classified elsewhere
CPT/HCPCS: 36415; 47535; 49405; 51700; 71045; 74176; 74470; 76942; 80048; 80053; 80061; 81001; 82150; 82248; 82550; 82553; 82607; 82728; 82746; 82948; 83036; 83540; 83605; 83690; 83735; 84100; 84466; 84484; 85025; 85045; 85610; 85730; 87040; 87070; 87071; 87086; 87186; 87205; 93005; 99152; 99153; 99284; C1769; J1756; J2001; J2250; J2270; J2405; J2543; J3010; J3420; J7030; J7040; J7050; Q9967; U0002

== ENCOUNTER 2020-08-03 06:19 | Inpatient (IN) | payer MEDICARE ==
[~2020-08-03] VITALS: Ht 157.5 cm; Wt 49.0 kg
[~2020-08-03 06:19] MED LIST changes: +AMITRIPTYLINE H10 MG PO; +CARVEDILOL6.25 MG PO; +DESMOPRESSIN A0.2 MG PO; +FLUOXETINE HCL40 MG; +KEFLEX500 MG PO; +LEVOTHYROXINE88 MCG PO; +LIOTHYRONINE SO5 MCG PO; +PANTOPRAZOLE SO40 MG PO; +QUETIAPINE FUM400 MG PO; +ULTRAM 50MG50 MG PO; -VITAMIN D32000 UNI1; +VITAMIN D32000 UNI1 PO; +[UNRECOGNIZED DRUG - OTHER] OU
[2020-08-03 06:29] LABS: BASOPHILS # (AUTO) 0.1 (0.0-0.1); BASOPHILS % 0.7 % (0.0-1.0); EOSINOPHILS # (AUTO) 0.3 (0.0-0.4); EOSINOPHILS % 3.2 % (0.0-6.0); HEMATOCRIT 35.7 % (34.2-44.1); HEMOGLOBIN 11.2 g/dL (12.0-16.0); LYMPHOCYTES % 19.4 % (18.0-39.1); MEAN CORPUSCULAR HEMOGLOBIN 28.4 pg (28-32); MEAN CORPUSCULAR HGB CONC 31.4 g/dL (31-35); MEAN CORPUSCULAR VOLUME 90.6 fL (81-99); MONOCYTES # (AUTO) 0.8 (0.2-0.8); MONOCYTES % 7.4 % (4.4-11.3); NEUTROPHILS # (AUTO) 7.1 (2.1-6.9); NEUTROPHILS % 68.7 % (38.7-80.0); PLATELET COUNT 343 x10e3/uL (140-360); RED BLOOD COUNT 3.94 x10e6/uL (3.6-5.1)
[2020-08-03 06:35] LABS: INR 0.98; PROTHROMBIN TIME 13.5 seconds (11.9-14.5)
[2020-08-03 06:36] LABS: PARTIAL THROMBOPLASTIN TIME 28.7 seconds (23.8-35.5)
[2020-08-03 06:46] LABS: ALANINE AMINOTRANSFERASE 10 IU/L (0-55); ALBUMIN 3.2 g/dL (3.5-5.0); ALBUMIN/GLOBULIN RATIO 0.8 (0.8-2.0); ALKALINE PHOSPHATASE 104 IU/L (40-150); ANION GAP 12.8 mmol/L (8-16); BLOOD UREA NITROGEN 16 mg/dL (7-26); BUN/CREATININE RATIO 14 (6-25); CALCIUM 9.4 mg/dL (8.4-10.2); CARBON DIOXIDE 21 mmol/L (22-29); CHLORIDE 109 mmol/L (98-107); CREATINE KINASE 46 IU/L (29-168); CREATININE, SERUM 1.16 mg/dL (0.57-1.11); EST GLOMERULAR FILTRATION RATE 46 ML/MIN (60-); GLUCOSE 96 mg/dL (74-118); MAGNESIUM 1.8 MG/DL (1.3-2.1); POTASSIUM 4.8 mmol/L (3.5-5.1); SODIUM 138 mmol/L (136-145)
[2020-08-03] MEDS ORDERED: ASPIRIN 81 MG CHEW TAB PO ONE (08:15)
[2020-08-03] MEDS ORDERED: SODIUM CHLORIDE 0.9% 1000ML 1,000 ML IV SCH ×2 (08:15→14:15)
[2020-08-03] MEDS ORDERED: ASPIRIN 81 MG ENTERIC COATED PO SCH (09:00)
[2020-08-03 09:08] LABS: BILIRUBIN,URINE NEGATIVE (NEGATIVE); CLARITY,URINE CLEAR (CLEAR); COLOR,URINE YELLOW (YELLOW); KETONES,URINE NEGATIVE (NEGATIVE); LEUKOCYTE ESTERASE ,URINE NEGATIVE (NEGATIVE); NITRITE,URINE NEGATIVE (NEGATIVE); PROTEIN,URINE DIPSTICK NEGATIVE (NEGATIVE); URINE UROBILINOGEN 0.2 mg/dL (0.2 - 1)
[2020-08-03 09:13] LABS: BACTERIA,URINE FEW /HPF; EPITHELIAL CELLS,URINE FEW /LPF; RBC,URINE 0-5 /HPF (0-5); WBC,URINE (MAN) 0-5 /HPF (0-5)
[2020-08-03 10:35] VITALS: BP 122/83
[2020-08-03 10:39] VITALS: BP 122/83
[2020-08-03 10:45] VITALS: BP 122/83
[2020-08-03] MEDS ORDERED: AMILORIDE HCL5 MG PO (11:14)
[2020-08-03 13:00] VITALS: BP 98/79
[2020-08-03 14:55] LABS: CREATINE KINASE 46 IU/L (29-168)
[2020-08-03 16:00] VITALS: BP_SYST 123; BP_SYST 124; BP_DIAS 68; BP_DIAS 99
[2020-08-03] MEDS ORDERED: HYDRALAZINE HCL 20 MG/ML VIAL IV PRN (16:00)
[2020-08-03] MEDS ORDERED: ONDANSETRON HCL INJ 2MG/ML 2ML 2 MG/ML VIAL IV PRN (16:00)
[2020-08-03] MEDS ORDERED: ASPIRIN EC81 MG PO (16:53)
[2020-08-03] MEDS ORDERED: FAMOTIDINE20 MG/2 ML IV (16:53)
[2020-08-03] MEDS ORDERED: ONDANSETRON4 MG/2 M1 IV (16:53)
[2020-08-03] MEDS ORDERED: HYDRALAZIN20 MG/1 ML IV (16:53)
[2020-08-03] MEDS ORDERED: SODIUM CHLORID250 M1 IV (16:58)
[2020-08-03] MEDS ORDERED: FAMOTIDINE 20 MG/2 ML VIAL IV SCH (17:00)
[2020-08-03] MEDS ORDERED: LATANOPROST(OPTH) 2.5 ML BTL OU SCH (21:00)
== END 2020-08-03 17:01 | disposition short-term general hospital (02) | DRG 65 ==
LOC: ER 06:23 → ERHOLD 08:12 → IMCU 10:32 → ICU 16:18
PROVIDERS: ADMIT Internal Medicine; ATTEND Internal Medicine
DX: I63.512 Cerebral infarction due to unspecified occlusion or stenosis of left middle cerebral artery (principal); G81.91 Hemiplegia, unspecified affecting right dominant side; I10 Essential (primary) hypertension; E11.9 Type 2 diabetes mellitus without complications; K21.9 Gastro-esophageal reflux disease without esophagitis; F17.210 Nicotine dependence, cigarettes, uncomplicated; Z88.5 Allergy status to narcotic agent; Z88.8 Allergy status to other drugs, medicaments and biological substances; R29.810 Facial weakness; R47.01 Aphasia; D72.829 Elevated white blood cell count, unspecified; H54.62 Unqualified visual loss, left eye, normal vision right eye; F31.9 Bipolar disorder, unspecified; F41.9 Anxiety disorder, unspecified; E03.9 Hypothyroidism, unspecified; H40.9 Unspecified glaucoma; Z83.3 Family history of diabetes mellitus; W06.XXXA Fall from bed, initial encounter; Y93.9 Activity, unspecified; Y92.013 Bedroom of single-family (private) house as the place of occurrence of the external cause; Z20.828 Contact with and (suspected) exposure to other viral communicable diseases
CPT/HCPCS: 36415; 70450; 70544; 70547; 70551; 71045; 72125; 80053; 81001; 82550; 82553; 82948; 83735; 84484; 85025; 85610; 85730; 87086; 93005; 93306; 99284; J7030; U0002